=== PATIENT | male | born 1970 | race Caucasian/White ===

== ENCOUNTER 2023-12-08 07:07 | Observation (INO) | payer BC ==
[2023-12-08] MEDS ORDERED: Ondansetron PF 4 MG/2 ML Vial IVP PRN (08:58)
[2023-12-08 09:11] LABS: Troponin I Less than 0.010 ng/mL (< 0.028)
[2023-12-08 09:17] VITALS: BMI 34.9
[2023-12-08 09:43] LABS: Hemoglobin A1c 7.2 % (4.0-6.0)
[2023-12-08 09:47] LABS: Cardiac Risk 4.7 (Less than 4.5)
[2023-12-08] MEDS ORDERED: Acetaminophen 325 MG TAB ONE (10:33)
[2023-12-08] MEDS: Acetaminophen 325 MG TAB PO SCH (10:41)
[2023-12-08] MEDS: Sodium Chloride 0.9% 1,000 ML IV SCH (10:45)
[2023-12-08 13:59] VITALS: BP 111/77; TEMP 99.1
[2023-12-08] MEDS ORDERED: Rosuvastatin 20 MG TAB PO SCH (21:00)
[2023-12-09] MEDS ORDERED: Enoxaparin 40 MG (0.4 mL) SYRINGE SC SCH (09:00)
[2023-12-09] MEDS ORDERED: Empagliflozin 25 MG TAB PO SCH (09:00)
== END 2023-12-08 17:19 | disposition home or self-care (01) ==
LOC: ERS 07:07 → INTOOBSV 08:40 → ERHOLD 08:40
PROVIDERS: ADMIT Internal Medicine; ATTEND Internal Medicine
DX: I47.10 Supraventricular tachycardia, unspecified (principal); I10 Essential (primary) hypertension; G47.33 Obstructive sleep apnea (adult) (pediatric); E66.9 Obesity, unspecified; E11.9 Type 2 diabetes mellitus without complications; Z79.84 Long term (current) use of oral hypoglycemic drugs; Z79.899 Other long term (current) drug therapy; Z90.49 Acquired absence of other specified parts of digestive tract; Z90.89 Acquired absence of other organs; Z98.890 Other specified postprocedural states; Z87.891 Personal history of nicotine dependence
CPT/HCPCS: 36416; 80061; 83036; 93005; G0378; J7050